=== PATIENT | female | born 1970 | race Caucasian/White ===

== ENCOUNTER 2024-11-10 01:23 | Emergency (ER) | payer OTHER ==
--- OUTSIDE RECORDS SUMMARY | 2024-11-10 01:27 | XMS REPORT | Continuity of Care Document ---
Author Name Unknown Address [address] [place] [address] [facility] [place] Address [address] [place] [address] Care Team Providers Care In Home Baby Sitter Name Role Phone Pcp, Patient Does Not Have A Primary Care Physic santosh Logan Lucas MD Attending Clinician [phone] RICHAR PEREIRA Attending Clinician Unavailable RICHAR PEREIRA Attending Clinician Unavailable LOGAN LUCAS Attending Clinician Unavailable Adrian Ruiz Attending Clinician [phone] ADRIAN ARZOLA Attending Clinician Unavailable Neurology Attending Clinician Unavailable Chau Garcia MD Attending Clinician + [phone] Cameron Burton MD Attending Clinician [phone] JUMANA TRAN Attending Clinician Unavailable JUMANA TRAN Attending Clinician Unavailable Jumana Tran MD Attending Clinician [phone] CASIMIRO VILLARREAL Attending Clinician Unavailable Casimiro Villarreal DO Attending Clinician [phone] ANUPAM BAIRD Attending Clinician Unavailable ADRIAN ARZOLA Admitting Clinician Unavailable Cameron Burton MD Admitting Clinician [phone] CAMERON BURTON Admitting Clinician Unavailable ROSALIO NOWAK Admitting Clinician Unavailable Payers Payer Name Policy Type Policy Number Effective Date Expirati on Date Source Problems Condition Name Condition Details Condition Category Status Onset Date Resolution Date Last Treatment Date Treating Clinician Comments Source Obesity (BMI 30-39.9) Obesity (BMI 30-39.9) Disease Active 9-21 00:00: 00 [facility] Trauma Trauma Disease Active 9-20 00:00: 00 [facility] Allergies, Adverse Reactions, Alerts Allergy Name Allergy Type Status Severity Reaction(s) Onset Date Inactive Date Treating Clinician Comments Source LAVENDER EXTRACT DRUG INGREDI Active High Anaphylaxis 2-06 00:00: 00 [facility] Lavender Extract Propensi ty to adverse reaction s Active Anaphylaxis 2-06 00:00: 00 [facility] ASPIRIN DRUG INGREDI Active Anaphylaxis 2019-0 2-16 00:00: 00 [facility] CODEINE DRUG INGREDI Active Rash 2019-0 2-16 00:00: 00 [facility] HYDROCOD ONE DRUG INGREDI Active N/V 2019-0 2-16 00:00: 00 [facility] PREDNISO NE DRUG INGREDI Active Swelling 2019-0 2-16 00:00: 00 [facility] HYDROCOD ONE-ACET AMINOPHE N DRUG Active Hallucinates 2019-0 2-16 00:00: 00 [facility] Aspirin Propensi ty to adverse reaction s Active Anaphylaxis 2019-0 2-16 00:00: 00 [facility] Codeine Propensi ty to adverse reaction s Active Rash 2019-0 2-16 00:00: 00 [facility] Hydrocod one Propensi ty to adverse reaction s Active Nausea and/or Vomiting 2019-0 2-16 00:00: 00 [facility] Predniso ne Propensi ty to adverse reaction s Active Swelling 2019-0 2-16 00:00: 00 [facility] Hydrocod one-Acet aminophe n Propensi ty to adverse reaction s Active Hallucinatio ns 2019-0 2-16 00:00: 00 [facility] Social History Social Habit Start Date Stop Date Quantity Comments Source History of tobacco use Cigarette Smoker [facility] of Social function 2024-04-24 00:00:00 2024-04-24 00:00:00 [facility] Tobacco use and exposure 2024-04-24 00:00:00 2024-04-24 00:00:00 Smokeless tobacco non-user [facility] Exposure to SARS-CoV-2 (event) 2022-08-13 00:00:00 2022-08-23 17:42:00 Not sure [facility] Sex assigned at 1970 00:00:00 1970 00:00:00 [facility] Smoking Status Start Date Stop Date Source Tobacco smoking consumption unknown [facility] Smokes tobacco daily 2024-04-24 00:00:00 [facility] Medications Ordered Medication Name Filled Medication Name Start Date Stop Date Current Medication? Ordering Clinician Indication Dosage Frequency Signature (SIG) Comments Components Source cyclobenzap rine 10 mg tablet 2023-07 00:00: 00 Yes 10mg Take 1 tablet by mouth in the morning and 1 tablet in the evening. [facility] polyethylen e glycol 3350 17 gram powder 04-10 00:00: 00 Yes [id number] 17g Take 1 Packet by mouth in the morning. [facility] pregabalin 100 mg capsule 04-10 00:00: 00 07-04 00:00 :00 No [id number] 100mg Take 1 capsule by mouth in the morning and 1 capsule at noon and 1 capsule in the evening. [facility] polyethylen e glycol 3350 powder 17 g 04-09 01:30: 00 Yes 17g 17 g, Oral, DAILY, First dose on 04/08/24 at 2030, Until Discontinu ed, Routine [facility] acetaminoph en 500 mg tablet 04-09 00:00: 00 Yes [id number] 1000mg Take 2 tablets by mouth in the morning and 2 tablets at noon and 2 tablets in the evening. [facility] pregabalin 100 mg capsule 04-09 00:00: 00 04-10 00:00 :00 No [id number] 100mg Take 1 capsule by mouth in the morning and 1 capsule at noon and 1 capsule in the evening. [facility] pregabalin (LYRICA) capsule 100 mg 04-08 16:45: 00 Yes 100mg 100 mg, Oral, TID, First dose on Wed04/08/24 at 1145, Until Discontinu ed, Routine [facility] fentanyl PF (SUBLIMAZE (PF)) injection 50 mcg 04-08 04:58: 00 04-07 05:03 :00 No 50ug 50 mcg, Intramuscu lar, ONCE, 1 dose, On Wed04/08/24 at 0000, NATALIE [facility] acetaminoph en (TYLENOL) tablet 1,000 mg 04-07 23:45: 00 Yes 1000mg 1,000 mg, Oral, TID, First dose on Wed04/07/24 at 1845, Until Discontinu ed, Routine [facility] ondansetron (ZOFRAN (PF)) injection 4 mg 04-07 23:31: 26 Yes 4mg [facility] traMADoL (ULTRAM) tablet 50 mg 04-07 23:31: 06 Yes 50mg 50 mg, Oral, Q6HPRN, Starting on Wed04/07/24 at 1831, Until Discontinu ed, Routine, Pain (scale 4-6) [facility] gadoteridol (PROHANCE-2 0 mL) injection 18.14 mL 04-07 19:30: 00 04-07 19:30 :00 No [id number] .2mL/kg 18.14 mL (0.2 mL/kg ?90.7 kg), Intravenou s, ONCE, 1 dose, On Wed04/07/24 at 1430, Routine [facility] ondansetron (ZOFRAN (PF)) injection 4 mg 04-07 16:00: 00 04-07 15:58 :00 No 4mg 4 mg, Slow IV Push, ONCE, On Wed04/07/24 at 1100, For 1 dose, Doses of ondansetro n 16 mg and above need to be administer ed via IV piggyback. For Dose >=24mg ECG monitoring is advisable. 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 [facility] fluconazole 150 mg tablet 2-05 00:00: 00 08-24 05:59 :00 No [id number] 150mg Take 1 tablet by mouth once now for 1 dose. [facility] ibuprofen 600 mg tablet -25 00:00: 00 Yes [id number] 600mg Take 1 tablet by mouth every 6 (six) hours as needed for Pain (scale 4-6). [facility] ondansetron (ZOFRAN ODT) 4 mg disintegrat ing tablet 11-10 00:00: 00 Yes [id number] 4mg Take 1 tablet by mouth every 8 (eight) hours as needed for Nausea and Vomiting (N/V). [facility] Vital Signs Vital Name Observation Time Observation Value Comments S ource Systolic blood pressure 2024-08-24 16:02:00 133 mm[Hg] [facility] Diastolic blood pressure 2024-08-24 16:02:00 83 mm[Hg] [facility] Heart rate 2024-08-24 16:02:00 83 /min [facility] Body height 2024-08-24 16:02:00 160 cm [facility] Body weight 2024-08-24 16:02:00 107.321 kg [facility] BMI 2024-08-24 16:02:00 41.91 kg/m2 [facility] Oxygen saturation in Arterial blood by Pulse oximetry 2024-08-24 16:02:00 98 /min [facility] Respiratory rate 2024-07-04 17:18:00 16 /min [facility] Body height 2024-07-04 17:18:00 160 cm [facility] Body weight 2024-07-04 17:18:00 99.791 kg [facility] BMI 2024-07-04 17:18:00 38.97 kg/m2 [facility] Respiratory rate 2024-04-24 15:58:00 18 /min [facility] Body height 2024-04-24 15:58:00 160 cm [facility] Body weight 2024-04-24 15:58:00 90.719 kg [facility] BMI 2024-04-24 15:58:00 35.43 kg/m2 [facility] Systolic blood pressure 2024-04-09 16:25:00 130 mm[Hg] [facility] Diastolic blood pressure 2024-04-09 16:25:00 68 mm[Hg] [facility] Heart rate 2024-04-09 16:25:00 83 /min Un[facility] Body temperature 2024-04-09 16:25:00 36.56 Hailee [facility] Respiratory rate 2024-04-09 16:25:00 18 /min [facility] Oxygen saturation in Arterial blood by Pulse oximetry 2024-04-09 16:25:00 96 /min [facility] Body height 2024-04-07 11:08:41 160 cm [facility] Body weight 2024-04-07 11:08:41 90.719 kg [facility] BMI 2024-04-07 11:08:41 35.43 kg/m2 [facility] Systolic blood pressure 2024-04-07 09:48:00 148 mm[Hg] [facility] Diastolic blood pressure 2024-04-07 09:48:00 98 mm[Hg] [facility] Heart rate 2024-04-07 09:48:00 73 /min [facility] Body temperature 2024-04-07 09:48:00 36.61 Hailee [facility] Respiratory rate 2024-04-07 09:48:00 18 /min [facility] Oxygen saturation in Arterial blood by Pulse oximetry 2024-04-07 09:48:00 95 /min [facility] Body height 2024-04-07 04:16:00 160 cm [facility] Body weight 2024-04-07 04:16:00 90.719 kg [facility] BMI 2024-04-07 04:16:00 35.43 kg/m2 [facility] Systolic blood pressure 2022-08-23 23:43:00 134 mm[Hg] [facility] Diastolic blood pressure 2022-08-23 23:43:00 92 mm[Hg] [facility] Heart rate 2022-08-23 23:43:00 71 /min Un[facility] Body temperature 2022-08-23 23:43:00 36.61 Hailee [facility] Respiratory rate 2022-08-23 23:43:00 16 /min [facility] Body height 2022-08-23 23:43:00 160 cm [facility] Body weight 2022-08-23 23:43:00 102.059 kg [facility] BMI 2022-08-23 23:43:00 39.86 kg/m2 [facility] Oxygen saturation in Arterial blood by Pulse oximetry 2022-08-23 23:43:00 96 /min [facility] Systolic blood pressure 2024-08-24 16:02:00 133 mm[Hg] [facility] Diastolic blood pressure 2024-08-24 16:02:00 83 mm[Hg] [facility] Heart rate 2024-08-24 16:02:00 83 /min [facility] Body height 2024-08-24 16:02:00 160 cm [facility] Body weight 2024-08-24 16:02:00 107.321 kg [facility] BMI 2024-08-24 16:02:00 41.91 kg/m2 [facility] Oxygen saturation in Arterial blood by Pulse oximetry 2024-08-24 16:02:00 98 /min [facility] Respiratory rate 2024-07-04 17:18:00 16 /min [facility] Body temperature 2024-04-09 16:25:00 36.56 Hailee [facility] Procedures Procedure Date / Time Performed Performing Clinician Source EMG/NCV 2024-06-27 20:49:48 [facility] EMG/NCV 2024-06-27 20:49:48 [facility] MR CERVICAL SPINE W WO CONTRAST 2024-04-07 19:20:00 Brenna Elder [facility] URINALYSIS 2024-04-07 16:50:00 [facility] LIPASE 2024-04-07 11:14:00 PersonMaria GJose [facility] COMP. METABOLIC PANEL ([id number]) 2024-04-07 11:14:00 Jose Eng [facility] ETHANOL 2024-04-07 11:14:00 [facility] 2024-04-07 11:14:00 Person, Jose [facility] PR[facility] / INR 2024-04-07 11:14:00 Person, Garrett olivo [facility] ACTIVATED PARTIAL THRMPLAS AYUSH 2024-04-07 11:14:00 Person, Jose [facility] HB ABO GROUPING 2024-04-07 11:14:00 Person, Jose Echevarria [facility] POCT GLUCOSE (AUTOMATED) 2022-08-24 00:09:00 Casimiro Villarreal [facility] URINALYSIS 2022-08-23 23:55:00 Casimiro Villarreal [facility] CONSENT/REFUSAL FOR DIAGNOSIS AND TREATMENT 2022-08-23 23:34:45 Doctor Unassigned, Ashkum [facility] CONSENT/REFUSAL FOR DIAGNOSIS AND TREATMENT 2022-08-23 23:32:13 Doctor Unassigned, Ashkum [facility] Encounters Start Date/Time End Date/Time Encounter Type Admission Type Attending Clinicians Care Facility Care Department Encounter ID Source 2024-09-19 00:00:00 2024-09-19 10:22:35 Telephone Logan Lucas [facility] 1.2.840.114 350.1.13.10 4.2.7.2.686 [id number] [facility] 2024-08-24 10:00:00 2024-08-24 11:00:00 Office Visit Logan Lucas 1.2.840.1 [id number] 3.104.2.7 .3.483024 .[id number] [facility] 2024-08-24 10:00:00 2024-08-24 10:00:00 Outpatient LOGAN PALACIOS [facility] [id number] [facility] 2024-08-15 10:30:00 2024-08-15 10:30:00 Outpatient RICHAR MULLEN FNU [facility] [id number] [facility] 2024-06-21 00:00:00 2024-07-06 09:57:00 Telephone Adrian Arzola 1.2.840.1 [id number] 3.104.2.7 .3.047023 .8 [id number] [facility] 2024-07-04 11:30:00 2024-07-04 12:06:29 Outpatient R ADRIAN ARZOLA [facility] [id number] [facility] 2024-07-04 11:30:00 2024-07-04 12:06:29 Office Visit Adrian Arzola 1.2.840.1 12545.1.1 3.104.2.7 .3.422067 .8 [id number] [facility] 2024-07-04 00:00:00 2024-07-04 00:00:00 Travel 1.2.840.1 [id number] 3.104.2.7 .3.064926 .8 1.2.840.114 350.1.13.10 4.2.7.3.698 [id number] [facility] 2024-06-27 11:47:53 2024-06-27 23:59:00 Outpatient R LOGAN LUCAS [facility] [id number] [facility] 2024-06-27 11:47:53 2024-06-27 23:59:00 Hospital Encounter Logan Lucas Julia 1.2.840.1 [id number] 3.104.2.7 .3.126501 .8 [id number] [facility] 2024-06-27 00:00:00 2024-06-27 00:00:00 Travel 1.2.840.1 [id number] 3.104.2.7 .3.925667 .8 1.2.840.114 350.1.13.10 4.2.7.3.698 [id number] [facility] 2024-05-11 00:00:00 2024-05-11 14:57:41 Letter (Out) Neurology Neurology [facility] 1.2.840.114 350.1.13.10 4.2.7.2.686 [id number] [facility] 2024-05-03 00:00:00 2024-05-04 09:15:03 Telephone Dariusz Adrian [facility] 1.2.840.114 350.1.13.10 4.2.7.2.686 [id number] [facility] 2024-04-24 11:30:00 2024-04-24 12:11:38 Outpatient R DARIUSZ [facility] [id number] [facility] 2024-04-24 11:30:00 2024-04-24 12:11:38 Office Visit Dariusz [facility] MED[facility] OFF[facility] 1.2.840.114 350.1.13.10 4.2.7.2.686 [id number] [facility] 2024-04-10 00:00:00 2024-04-10 17:21:29 Telephone Chau Garcia [facility] 1.2.840.114 350.1.13.10 4.2.7.2.686 [id number] [facility] 2024-04-07 06:08:00 2024-04-09 16:00:00 Emergency Cameron Burton [facility] 1.2.840.114 350.1.13.10 4.2.7.2.686 [id number] [facility] 2024-04-06 23:08:00 2024-04-07 05:17:00 Emergency X JUMANA TRAN WAKILI [facility] [id number] [facility] 2024-04-06 23:08:00 2024-04-07 05:17:00 Emergency X JUMANA TRAN WAKILI [facility] E[facility] [id number] [facility] 2024-04-06 23:08:00 2024-04-07 05:17:00 Emergency Jumana Tran [facility] 1.2.840.114 350.1.13.10 4.2.7.2.686 [id number] [facility] 2022-08-23 17:44:00 2022-08-23 18:40:00 Emergency X CASIMIRO VILLARREAL [facility] E[facility] [id number] [facility] 2022-08-23 17:44:00 2022-08-23 18:40:00 Emergency Casimiro Villarreal [facility] 1.2.840.114 350.1.13.10 4.2.7.2.686 [id number] [facility] 2020-11-09 23:39:00 2020-11-09 23:39:00 Emergency X [facility] [id number] [facility] 2019-09-03 16:42:01 2019-09-03 18:25:00 Emergency X ANUPAM BAIRD [facility] ERT [id number] [facility] Results Test Description Test Time Test Comments Results Resul t Comments Source MR CERVICAL SPINE W WO CONTRAST 2024-03-20 0 21:49:32 EXAM: MR CERVICAL SPINE W WO CONTRAST HISTORY: Fall, left shoulder pain COMPARISON: None. TECHNIQUE: Multiplanar multisequence images of cervical spine ?withattention to the left brachial plexus with and without contrast. ? FINDINGS: LEFT BRACHIAL PLEXUS: No thickening or enhancement is seen involving the left brachial plexusroots, trunks, divisions, or cords. No mass or mass effect is seen. No aneurysmal dilatation or stenosis is seen involving the subclavianartery. The scalene muscles and visualized rotator cuff muscles demonstrate nofatty infiltration or atrophy. The ?left lung apex is normal. CERVICAL SPINE:Normal cervical lordosis is preserved. The vertebral bodies are normal inheight and in normal alignment. No disc dessication is seen. The background marrow signal is unremarkable. The cervical cord is normal in caliber and signal. C2-3: No significant spinal canal stenosis or neural foraminal narrowing ispresent. C3-4: No significant spinal canal stenosis or neural foraminal narrowing ispresent. ? C4-5: Disc osteophyte complex is noted with mild spinal canal narrowing.There is no significant neural foramen narrowing. ? C5-6: Disc osteophyte complex is noted with mild to moderate spinal canalnarrowing. There is bilateral mild neuroforamen narrowing. ? ? C6-7: Disc osteophyte complex is noted with left paracentral disc bulgecausing mild ?spinal canal narrowing (series 6, image 16). No significantneural foramen narrowing. C7-T1: No significant spinal canal stenosis or neural foraminal narrowingis present. [facility] Ethanol - For all patients >16 years old 2024-03-20 0 11:43:05 ALCOHOL<10mg/dL2023 6:43 AM CDTUTMB LABORATORY SERVICESToxic Greater than or equal to 80 mg/dL. NOTE: Whole blood values are approximately 10% to 15% lower than serum and plasma. [facility] 11:37:11* Test Item Value Reference Range Interpretation Comme [facility] LIPASE (test code = 2354290743) 102 U/L 0-220 Lab Interpretation (test cod e = 31913-7) Normal [facility] Time / [id number] 11:33:52* Test Item Value Reference Range Interpretation Comme [facility] PROTIME PATIENT (test code = 5964-2) 11.6 10.1-12.6 INR (test code = 6301-6) 1.0 Normal INR <1.1; Warfarin Therapeutic range 2.0 to 3.0 or 2.5 to 3.5, depending upon the indications. Lab Interpretation (test code = 93080-7) Normal [facility]TT2024-09-20 11:33:52* Test Item Value Reference Range Interpretation Comme [facility] APTT Patient (test code = 3173-2) 29 26-36 Lab Interpretation (test cod e = 28334-6) Normal [facility]CBC Without [id number] 11:24:29* Test Item Value Reference Range Interpretation Comme nts WBC (test code = 6690-2) 12.40 4.30-11.10 H RBC (test code = 789-8) 4.29 3.93-5.25 HGB (test code = 718-7) 11.7 g/dL 11.6-15.0 HCT (test code = 4544-3) 35.9 % 35.7-45.2 MCH (test code = 785-6) 27.3 pg 25.9-32.8 MCV (test code = 787-2) 83.7 fL 80.6-95.5 MCHC (test code = 786-4) 32.6 g/dL 31.6-35.1 PLT (test code = 777-3) 295 166-358 MPV (test code = 04204-9) 11.4 fL 9.5-12.9 RDW-CV (test code = 788-0) 16.1 % 12.0-15.5 H RDW-SD (test code = 16790-2) 49.1 fL 39.0-49.9 NRBC x10^3 (test code = 9129935117) See_Comment [Automated True Office ge] The system which generated this result transmitted reference range: 10*3/?L. The reference range was not used to interpret this result as normal/abnormal. NRBC/100 WBC (test code = 7101690389) 0.0 0.0-10.0 IPF % (test code = 9772085445) Lab Interpretation (test code = 10851-9) Abnormal [facility] - The Type and Screen expires at midnight on the 3rd day after it was drawn. A current Type and Screen is required when RBCs are requested. For all other blood products, a Type and Scr een performed during the current hospitalizati...2024-04-07 11:19:00* Test Item Value Reference Range Interpretation Comme nts ABO & RH (test code = 20) A POSITIVE IAT (test code = 1185) Negative [facility])2022-08-24 00:12:20* Test Item Value Reference Range Interpretation Comme nts POCT GLU (test code = 1985961002) 85 mg/dL 70-110 Lab Interpretation (test cod e = 56566-3) Normal [facility] Consult Notes Date/Time Note Provider Source 2024-04-08 12:09:00 Associated Order(s): CONSULT ADULT OCCUPATIONAL THERAPY OT GENERAL EVALUATION Consult received via [email or web address], EMR reviewed and evaluation completed 04/08/24. Patient referred to occupational therapy for evaluation and treatment secondary to trauma accident at work where boxes fell on neck. Patient agreeable to participate in occupational therapy. Patient was seen in conjunction with Arie Stringer PT due to concerns for poor endurance and decreased tolerance for two separate therapy sessions. Billing for OT portion only. Discharge Recommendations: Patient would benefit from additional occupational therapy post discharge from hospital to address L UE deficits. Therapy Needs and Potential: - Patient would benefit from continued skilled occupational therapy services to address: Decline in basic activities of daily living, Decline in instrumental activities of daily living, Decreased strength, Decreased range of motion, Decreased endurance, and impaired self care mobility - Patient demonstrates good potential to improve and meet therapy goals with further skilled occupational therapy services. - Patient appears motivated to improve their BADLS AND IADLs and return to their previous level of function. - Patient demonstrates ability to tolerate at least 30-60 minutes of active participation in occupational therapy. - Patient able to follow commands: 1-step Yes, Multi-step Yes, Inconsistencies No Challenges to Home Transition: - Requires physical assistance for BADLS - Requires physical assistance for IADLS - Requires supervision or verbal cues for BADLS - Requires supervision or verbal cues for IADLS - Limited caregiver availability - Increased risk of falls - Environmental barriers - combo bath tub Equipment Recommendations:Grab bars and Tub Transfer Bench vs Shower Chair PLAN OF CARE: At least 2x/week Precautions: Weight bearing status: NA General: PPE Utilized: Gloves and Fall Bracing: Sling - For comfort while ambulating Subjective: "I need this hand to work." Current Occupational Performance and/or Treatment: AM-PAC 6 Clicks (Raw Score 0=Dependent, 24=Independent; Low function Raw Score 0= Dependent, 32=Independent): Raw Score - Daily Activity: 18 T-Scale Score - Daily Activity: 38.66 Feeding: Supervision, Patient with breakfast at bedside and has not eaten thus far. Patient was able to grasp cup w/ straw and medicine cup with R UE while sitting EOB w/ setup provided. Grooming: Supervision, Patient demonstrates ability to bring RUE to face to complete grooming tasks while seated. Patient reports independence brushing hair. LB Dressing: Supervision, for dynamic sitting balance. Toilet Transfer: Supervision, w/ grab bars Toileting Hygiene: Total Assistance, purewick and brief; patient report some of her medication result in her experiencing urinary incontinence Functional Mobility: supine -> sitting EOB -> scooting EOB w/ supervision. Sitting EOB -> standing w/ supervision. Patient ambulated around room without device for completion of ADLs and then returned to bedside. Standing -> sitting EOB w/ supervision. Patient/caregiver educated on: AAROM (handout provided for ROM of LUE), ADL training, AROM (handout provided for ROM of LUE), Desensitization, PROM (handout provided for ROM of LUE), Relaxation/breathing techniques, Role of OT, Safety awareness, Sensory Re-education, and Sling Management Patient left seated edge of bed with call shoemaker in reach. Visitor present. Please, see full evaluation below for more detail. OT EVALUATION: 54 year old female Admit date: 04/07/2024 Date of onset: 04/07/2024 Admit Diagnosis: Trauma [T14.90XA] OT Diagnosis: Impaired BADL independence, Impaired IADL independence, Weakness, Decreased endurance, Impaired self-care mobility, Decreased UE Function Non-Dominant, and Limited joint ROM PMH: Past Medical History: Diagnosis Date Anxiety and depression PTSD (post-traumatic stress disorder) PSH: No past surgical history on file. PAIN: Pain Location: left UE Pain rating before treatment: "10/10", After treatment: "15/10" Pain Management: Reports taking pain meds, Decreased movement aides in some pain reduction, and Repositioning Provided OCCUPATIONAL ROLES/HOME ENVIRONMENT: Home environment: The patient lives in a first floor apartment alone. 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 Function prior to admission: Household ambulation, Community ambulation, Independent with BADLs, and Independent with IADLs Suspected ischemic or hemorraghic stroke patient: No Equipment prior to admission: None PERFORMANCE SKILLS/FACTORS: UE Muscle Tone: bilateral WNL UE ROM: RUE WFL; L shoulder flexion demonstrated approximately 10 degrees of flexion and abduction actively. Patient completed slight PROM w/ OTR of L UE but limited secondary to pain. L elbow extension WFL w/ AAROM by OTR. L elbow flexion limited. L wrist w/ no AROM noted with minimal tolerance for PROM. L hand w/ no AROM noted with full PROM. UE Strength: RUE WFL; L shoulder (2-), L bicep/tricep (2-), L replenishment buyer (1/5) Hand dominance: right Dexterity/Coordination: left Impaired and right Intact Endurance - Sitting: Good Standing: Fair+ Sitting Balance - Static: Good Dynamic: Fair+ Standing: Balance - Static Fair+ Dynamic: Fair Dizziness: Yes Skin Integrity: No breakdown noted and defer full skin assessment to nursing Sensation: Patient RUE intact w/ no numbness/tingling. Patient reports hypersensitivity from L mid forearm proximally to shoulder joint. Patient reports dullness with impaired sensation to light touch from L mid forearm distally. Oral Motor: Poor dentition Communication: Able to verbalize needs Yes Other: N/A Vision: WFL Yes Other: reading glasses Hearing: good; no issues reported COGNITION: Orientation: person, place, date/time, and situation Follows Commands: 1-step Yes Multi-step Yes Inconsistencies No Safety Awareness/Judgment: Good PROBLEM LIST: Decreased independence with B/IADL, Decreased functional ROM, Decreased strength/endurance for functional activity, and impaired self care mobility REHAB POTENTIAL/PROGNOSIS: good PATIENT/FAMILY GOALS: "I want my hand to work." TREATMENT/INTERVENTION PLAN: Patient/Caregiver Education, Equipment recommendations, Daily living activities, Therapeutic exercises, and Sensory integration GOAL(S): By discharge, patient will increase independence in daily living skills as follows: 1 Patient will perform 1 grooming task while standing at sink with supervision. 2 Patient will perform simulated tub/shower transfer with supervision. 3 Patient will gather UB/LB clothing items and will then don appropriately with supervision. 4 Patient will increase endurance for functional activity as evidenced by ability to sustain 30 minutes of active participation. 5 Patient/caregiver will verbalize/demonstrate understanding/proficiency in the following home programs: ROM, 6 Sensory Re-Education/Desensitization, 7 Adaptive Equipment PATIENT-FAMILY TEACHING Patient provided with preferred teaching of verbal information, written information, and demonstration on AAROM (handout provided for ROM of LUE), ADL training, AROM (handout provided for ROM of LUE), Desensitization, PROM (handout provided for ROM of LUE), Relaxation/breathing techniques, Role of OT, Safety awareness, Sensory Re-education, and Sling Management. Shows readiness to learn. Verbal instruction, Written material, and Demonstration teaching provided. Individual is able to read and verbalizes understanding of teaching provided. Najma Curry OTR, OTD Pager #: [phone] Total Timed Treatment Codes: 10 Min Total Treatment Time: 33 Min Patient Complexity Level Moderate - An occupational therapy evaluation of moderate complexity was completed using the above tests and measures. The following information was obtained: An occupational profile and medical and therapy history, including an expanded review of medical and/or therapy records and additional review of physical, cognitive, or psychosocial history related to current functional performance, Various standardized and non-standardized assessments were used to identify at least 3-5 performance deficits related to physical, cognitive, or psychosocial skills that result in activity limitations and/or participation restrictions, and Clinical decision making of moderate analytic complexity, which includes an analysis of the occupational profile, analysis of data from detailed assessment(s), and consideration of several treatment options. Patient may present with comorbidities that affect occupational performance. Minimal to moderate modification of tasks or assistance (e.g., physical or verbal) with assessment(s) is necessary to enable patient to complete evaluation component. Najma Curry OT [facility] 2024-04-08 12:05:00 Associated Order(s): CONSULT ADULT PHYSICAL THERAPY Patient agreeable to working with physical therapy. Patient met semi reclined in bed. Patient's friend present in room. Recommend nursing staff utilize Large Base Quad Cane to safely assist patient with mobility out of the bed or chair. Pt seen in conjunction with OT (Najma Curry OT) secondary to anticipated limited activity tolerance and safety. Only billing for PT services. PHYSICAL THERAPY EVALUATION Consult received, chart reviewed and evaluation complete this date. Patient is referred to PT for evaluation and treatment. Patient is a 54 year old female who presents to hospital for Trauma [T14.90XA]. Discharge Recommendations: Therapy Needs and Potential: Patient would benefit from continued physical therapy services to address: decline in bed mobility decline in transfers decline in gait and/or balance decreased strength decreased endurance Patient demonstrates good potential to improve and meet therapy goals with further physical therapy services. Patient appears motivated to improve their functional mobility and return to their previous level of function. Challenges to Home Transition: increased risk of falls decreased caregiver availability Equipment recommendations: large base quad cane The patient would benefit from additional therapy post-discharge from hospital via outpatient to address L UE deficits Current Functional Status and/or Treatment: AM-PAC 6 Clicks (Raw Score 0=Dependent, 24=Independent; Low function Raw Score 0= Dependent, 32=Independent): Raw Score - Basic Mobility : 17 T-Scale Score - Basic Mobility : 39.67 Bed Mobility: Reclined to sitting: Supervision Sit to supine: Supervision Sitting balance Good Scooting to edge of bed: Supervision Repositioned patient to head of bed: Supervision Assessed that patient is able to perform bed mobility tasks without physical assistance however requires increased time as well as supervision for safety due to patient needing cueing for management of R UE. Dizziness No Transfers: Sit to stand: Supervision using no device. (X3 Trials) Stand to sit: Supervision using no device. (X3 Trials) Static/dynamic standing balance: Fair Verbal cueing provided for correct hand placement and correct use of AD Patient with verbal cues for hand placement and technique when performing stand to sit transfer. Patient requires supervision for safety secondary to needing cueing for safest techniques as well as demonstrating moderate postural sway. Dizziness No Ambulation: Assisted patient with ambulation as follows: 20 feet with no AD, 150 feet, with Large base quad cane, 170 total feet using large base quad Cane and Minimal Assistance. Patient presenting with Step-to gait pattern. Instructed patient in directional changes and head movements in all planes during gait trial resulting in mild-moderate instability and 1 LOB. Patient when ambulating without AD demonstrates moderate postural sway, resulting in patient utilizing furniture for stability. Patient educated on utilizing large base quad cane for stability/support. Patient agreeable. Patient provided with extensive education and demonstration of proper use of AD and proper sequencing. Patient demonstrates improved step lengths, arpit, and stability when utilizing AD. Patient required 3 standing rest break secondary to increased pain in L UE/LE with dependent positioning. Dizziness No Therapeutic exercise: patient educated in Fall prevention, Joint protection, Relaxation/breathing techniques, and Safety awareness. and patient/caregiver verbalizes understanding of instructions. Patient was educated on the importance of calling the staff for assistance to ensure safety and to prevent injury Patient educated on fall prevention strategies to reduce risks of falls. Patient educated on safe progression of activities in order to safely return to prior level of function. Patient educated on breathing techniques for improved activity tolerance and for pain management. Patient educated on energy conservation techniques in order to decrease level of exertion and decrease risks of falls Functional Outcome Measures: (Values within the past 12 hours) Tinetti Gait Score- # / 12 Initiation of gait: Hesitancy or multiple attempts to start Step length: Only on foot passes the other Foot clearance: Both feet completely clear floor Step Symmetry: Step lengths not equal Step continuity: Stopping/dis-continuous steps Path: Mild/moderate deviation or uses AD Trunk: Marked sway or uses AD Walking: Heels almost touching Tinetti Gait Score: 5 Tinetti Gait Score Interpretation: < 7 - Increased risk for falls After session, patient semi reclined in bed. Call button provided. All needs met, and nursing notified and aware. PLAN OF CARE: While in the hospital, PT will follow patient at least 3 times per week,once or twice a day, per patient's tolerance and needs. See below for complete details. Admit Date: 04/07/2024 Hospital Diagnosis:Trauma [T14.90XA] PT Diagnosis: Difficulty walking, Weakness, Malaise/fatigue, Pain, and Abnormality of gait and balance Weight Bearing Precaution: NA General Precautions: PPE used:Gloves, General, Fall, Lines/Tubes,IV R UE, oxygen: Room air Bracing/Cast present or required:Sling on L UE for comfort PMH: Past Medical History: Diagnosis Date Anxiety and depression PTSD (post-traumatic stress disorder) PSH: No past surgical history on file. Prior Living Situation: lives alone and in a 1st floor apartment, no steps to enter DME: No device Prior level of Mobility: community ambulation, house hold ambulation, ambulates with no device. Suspected ischemic or hemorraghic stroke:No Subjective: It feels like my arm is slowly coming back Patient/Family Goals: To recover Patient/Family verbalizes understanding of condition: Yes PAIN: -Pain Description: numbness, radiating, and tingling -Pain Location: left UE -Pain rating before treatment: 10, After treatment: 10 -Pain Management: Nursing Notified, Decreased movement aides in some pain reduction, and Repositioning Provided COMMUNICATION Primary Language: Slovenian Able to Verbalize needs: Yes Vision:good; no issues reported and reading glasses Hearing:good; no issues reported ORIENTATION/COGNITION: Oriented to: person, place, date/time, and situation Awake: Yes Alert: Yes Dizzy: No Follows Commands: Yes 1-Step Yes Multi-Step Yes Inconsistent: No NEUROLOGICAL Light Touch: within functional limits bilateral LE, Heel to gonzalez: Intact B LE Tone: Normal B LE BALANCE: Sitting: Static: Good Dynamic: Good Standing: Static: Fair with AD Dynamic: Fair+ with AD RANGE OF MOTION: within functional limits bilateral LE, STRENGTH: Grossly 5/5 (Normal), R LE knee extensors, knee flexors, ankle dorsiflexors, and extensor hallucis longus. Grossly 4/5 L LE knee extensors, knee flexors, ankle dorsiflexors, and extensor hallucis longus. ENDURANCE: Fair, Room air SKIN INTEGRITY: intact, PROBLEM LIST: Decline in bed mobility, Decline in gait, Decline in transfers, Decreased strength, Decreased endurance, Decreased balance, Safety awareness deficits, and Pain ASSESSMENT: Patient is a 54 year old female seen secondary to the above listed diagnosis. Patient would benefit from continued PT to address the above listed deficits to maximize independence and safety with functional mobility. Rehabilitation Potential: good Goals: The following goals are to maximize independence and safety with functional mobility to eventually return to prior living situation and prior functional status. Upon discharge, patient and/or family will demonstrate the followin. Supine-sit: Independent Sit to supine: Independent Sitting balance Excellent 2. Sit to stand: Independent using LRAD Stand to sit: Independent using LRAD 3. Independent with ambulation, Feet: 300 using least assistive device. Treatment Plan: Gait training, Therapeutic exercise, Transfer training, Balance training, Bed mobility training, Equipment needs assessment, Safety education, patient/caregiver education, Pain management, Neuromuscular Re-Education, and Functional Motor Training PATIENT EDUCATION: Patient provided with preferred teaching of verbal information on role of PT, plan of care, home safety, and fall prevention. Shows readiness to learn. Verbal instruction teaching provided. Individual is able to read and verbalizes understanding of teaching provided. Total Time Tx Codes in Minutes: 23 min Total Treatment Time in Minutes: 53 min Arie Stringer PT, DPT [facility] Rehabilitation Services A physical therapy evaluation of high complexity was completed based on meeting at the criteria below: A history of present problem with at least 3 or more personal factors (includes environmental factors) and/or comorbidities that impact the plan of care An examination of body systems using standardized tests and measures addressing a total of at least 4 or more elements from any of the following: body structures and functions, activity limitations, and/or participation limitations A clinical presentation with unstable and unpredictable characteristics Arie Stringer PT [facility] 2024-04-07 10:14:52 Associated Order(s): CONSULT NEUROSURGERY NEUROSURGERY CONSULTATION HISTORY AND PHYSICAL Attending Neurosurgeon: José Miguel Reason for Consultation: arm weakness s/p trauma HPI: Genaro Guerrero is a 54 year old female who presents to the ED after boxes had fallen on her at 0730 this AM. Patient reports she was at work when several boxes from a high shelf fell and impacted her on the left neck and left shoulder. She reports an immediate feeling of persistent pain down her left arm and persistent numbness of her left forearm. In the last hour she has noticed left leg weakness. ROS (BOLDED IF POSITIVE - otherwise negative) Constitutional: Nausea, Vomiting, Fevers, Chills Eyes: Diplopia, Amaurosis Fugax, Blurred Vision Ears, nose, mouth, and throat: Negative Endocrine: Negative Hematologic: Negative Card: Chest pain, Palpitations Pulm: Cough, Shortness of breath GI: Diarrhea, Constipation, Incontinence : Incontinence, Retention, Hematuria, Dysuria Integ: Masses, Rashes, Lesions Msk: Weakness, Pain Neuro: Headache, Vision changes, Dizziness, Weakness, Discoordination, Changes in sensation, Speech difficulty, Memory disturbances Medications No current facility-administered medications on file prior to encounter. Current Outpatient Medications on File Prior to Encounter Medication Sig Dispense Refill ibuprofen 600 mg tablet Take 1 tablet by mouth every 6 (six) hours as needed for Pain (scale 4-6). 30 tablet 0 ondansetron (ZOFRAN ODT) 4 mg disintegrating tablet Take 1 tablet by mouth every 8 (eight) hours as needed for Nausea and Vomiting (N/V). 10 tablet 0 Past Medical History: Past Medical History: Diagnosis Date Anxiety and depression PTSD (post-traumatic stress disorder) Past Surgical History: No past surgical history on file. Social History: Family History: No family history on file. PE Vitals: Vitals: 04/07/24 0745 04/07/24 0800 04/07/24 0815 04/07/24 0915 BP: 136/72 125/82 123/76 122/74 Pulse: 84 77 83 73 Resp: 18 18 18 20 Temp: 37 ?C (98.6 ?F) TempSrc: SpO2: 96% 94% 95% 95% Weight: Height: Awake, alert, oriented x4 PERRL bilaterally at 3 mm EOMI bilaterally Face symmetric Tongue midline UPPER EXTREMITY STRENGTH EXAM: R 5/5 5/5 5/5 5/5 5/5 D(C5) B(C6) T(C7) Supervisor [employer](C8) I (T1) L 0/5 0/5 0/5 0/5 0/5 LOWER EXTREMITY STRENGTH EXAM: R 5/5 5/5 5/5 5/5 5/5 IP(L2) Q(L3) TA(L4) EHL(L5) G(S1) L 0/5 0/5 0/5 0/5 0/5 Sensation intact to LT throughout Exam deep tendon: patellar 2/4 in RLE, 0/4 in LLE No bruising to the left neck or shoulder. Labs: Recent Labs 04/07/24 0614 WBC 12.40* HGB 11.7 HCT 35.9 PLT 295 ] Recent Labs 04/07/24 0614 NA 136 K 4.6 CL 108 TCO2 19* BUN 16 CREAT 0.62 GLU 109 CA 9.7 ] No results for input(s): "ACPH", "ACPCO2", "ACPO2", "ACHCO3", "ACNA", "ACK", "ACCAIONZ", "ACBE" in the last 72 hours. Recent Labs 04/07/24 0614 PTPAT 11.6 PTINR 1.0 APTTPAT 29 No results for input(s): "UPROTEIN", "UGLUCOSE", "UKETONES", "UBILI", "UBLOOD", "UUROBILIN", "ULEUKEST", "UNITRITE", "USPGRAV" in the last 72 hours. @1LFT@ No results for input(s): "PHENYTOIN", "PHENYFREE" in the last 72 hours. Imaging: CT CERVICAL SPINE WO CONTRAST Result Date: 04/07/2024 No acute osseous abnormality. Preliminary Report Dictated by Resident: May Vásquez MD., have reviewed this study and agree with the above report. XR SHOULDER 2+ VW LEFT Result Date: 04/07/2024 No acute osseous abnormality.. Preliminary Report Dictated by Resident: Zoraida Vásquez MD., have reviewed this study and agree with the above report. XR HUMERUS 2 VW LEFT Result Date: 04/07/2024 No acute osseous abnormality.. Preliminary Report Dictated by Resident: Zoraida Vásquez MD., have reviewed this study and agree with the above report. XR FOREARM 2 VW LEFT Result Date: 04/07/2024 No acute osseous abnormality.. Preliminary Report Dictated by Resident: Zoraida Vásquez MD., have reviewed this study and agree with the above report. Assessment:Genaro Guerrero is a 54 year old female who presents after boxes fell from a high shelf that impacted her on the left neck and left shoulder region at 0730 this AM while at work. Complains of numbness of the left forearm, pain of the left arm, and weakness of the left lower extremity. CT C spine reveals no acute osseous abnormality. The patient's pattern of symptoms do not correlate with a lesion concerning for acute neurosurgical intervention. Recommendations: No acute neurosurgical intervention is indicated at this time. Will review previously ordered MRI C-Spine once obtained. Raad Aldana MD Neurosurgery Service For inquiries please page [phone] Associated attestation - Chau Garcia MD - 04/07/2024 12:34 PM CDT I have participated in the care of this patient and agree with the resident's note with the following changes: none Chau Valdez MD, PhD Gardening Manager, Neurosurgery Department of Neurosurgery [facility] [email or web address] [facility] Notes Date/Time Note Provider Source 2024-09-19 10:20:15 Attempt made to reach out to pt to get verbal permission to send last office notes and information about up coming appointments.Message left with direct number to clinic given at this time. Will send notes when call back from pt is received. LEY Mares RN [facility] 2024-09-19 09:45:34 Genaro Guerrero is a 54 year old female Georgie calling from [facility] requesting the office visit nots from Aug and also wants to know when the pt next apt is Please call Georgie @ [facility] [phone] [phone] LEY Wetzel V [facility] 2024-08-24 10:00:00 Addended by: LOGAN LUCAS MD on: 08/24/2024 08:43 PM Modules accepted: Level of Service [facility] 2024-06-22 08:37:07 Routing to provider [facility] 2024-06-21 15:16:36 Genaro Guerrero is a 54 year old female [employer] would like to set up a Peer to Peer Please call [phone] Option 1 Reference # [id number] Dr. Arvizu Emg upper extremity due by 06/23 at 3:00pm LEY Mcgregor [facility] 2024-05-04 09:14:08 I left voicemail with patient advising of Alison's request for medical records and they would need to obtain from medical record department, call back number provided for additional questions or concerns. T [facility] 2024-05-03 10:28:56 Genaro Guerrero is a 54 year old female Alison lead case manager is calling requesting if is possible to obtain a copy of the office notes and [facility]73 forms. Mare Fay V [facility] 2024-04-10 17:19:14 Lyrica Rx re-sent T [facility] 2024-04-10 15:33:42 I spoke with [facility] who states they did not receive pregabalin prescription, will have provider resend. Fabiana Bocanegra RN [facility] 2024-04-10 11:12:18 Genaro Guerrero is a 54 year old female Patient stating she was to get a script for her Lyrica stated Tylenol is not helping. Hasn't taken since yesterday morning 04/09. And is in pain Please send to [facility] [address] [place] [address] T [facility] 2024-04-08 08:58:07 Problem: Falls, Risk of Goal: Absence of falls Outcome: Progressing as expected Problem: Pain Goal: Control of pain at or below patient's documented comfort goal Outcome: Progressing as expected Goal: Reduction in pain sensation Outcome: Progressing as expected Problem: Discharge Planning Goal: Adequate for discharge Outcome: Progressing as expected Goal: Effective communication Outcome: Progressing as expected Problem: Mobility - Impaired Goal: Able to achieve maximum mobility level Outcome: Progressing as expected La Shaw RN [facility] 2024-04-08 03:40:29 Problem: Falls, Risk of Goal: Absence of falls Outcome: Progressing as expected Problem: Pain Goal: Control of pain at or below patient's documented comfort goal Outcome: Progressing as expected Goal: Reduction in pain sensation Outcome: Progressing as expected Problem: Discharge Planning Goal: Adequate for discharge Outcome: Progressing as expected Goal: Effective communication Outcome: Progressing as expected Problem: Mobility - Impaired Goal: Able to achieve maximum mobility level Outcome: Progressing as expected Hanane Gibbs RN [facility] 2024-04-07 19:09:07 Report given to THERESA Koo. Rns discussed plan of care and further recommendations. Transport orders placed. Cherri Coppola RN [facility] 2024-04-07 19:01:49 Nurse Report Report given to THERESA Arcos. Chief complaint, assessment findings, infusion verify and orders reviewed. Plan of care discussed at bedside with patient and both nurses. Patient/family members verbalized understanding. Raquel Barry RN Raquel Barry RN [facility] 2024-04-07 17:56:44 Neurosurg and trauma at bedside [facility] 2024-04-07 17:49:23 Trauma states they will place dc orders shortly Arie White RN [facility] 2024-04-07 17:26:18 Neurosurg reports they are speaking to trauma at this time about findings on MRI. T [facility] 2024-04-07 17:07:09 Neurosurgery paged via personal number and reports they will review MRI to give trauma their recs T [facility] 2024-04-07 17:01:30 Spoke with trauma surgery who states they are pending recs from NSGY [facility] 2024-04-07 15:51:14 Spoke with Rad dairy and food laboratory assistant who states the MRI is being read at this time. [facility] 2024-04-07 14:49:46 Pt returned from MRI at this time T [facility] 2024-04-07 14:00:32 Pt remains in MRI at this time. T [facility] 2024-04-07 13:00:00 Pt remains in MRI at this time. [facility] 2024-04-07 12:06:39 Pt transported to [facility] at this time in stretcher, c-collar remains in place [facility] 2024-04-07 11:51:51 Pt removed from tele monitor at this time, MRI reports they are en route to pickle sorter pt. Pt urine collected at this time via purwick in suction canister. Sent off to lab. Pt verbalized understanding of dispo after MRI [facility] 2024-04-07 11:13:34 Trauma returned page, reports they will not give dispo orders under MRI is resulted. [facility] 2024-04-07 11:08:50 Trauma paged for dispo [facility] 2024-04-07 10:40:11 Spoke with MRI who states they will be getting patinet soon. Pt to be updated with pain meds. [facility] 2024-04-07 10:12:45 Trauma paged at this time in regard to patient wanting pain meds and to to drink. Dr. Wood states he will order analgeis and that patient can have Ice chips. MRI to be called at this time to determine will have imaging done. Patient resting in bed at this time. Respirations even and unlabored. NAD noted, VSS. Pending MRI at this time. States understanding of plan of care. Bed in lowest locked position, call light within reach, side rails up x2. [facility] 2024-04-07 07:48:56 Trauma/Surgery resident called back, they are currently in morning rounds and then will come by to see patient and put in orders. [facility] Nelly Carey RN [facility] 2024-04-07 07:43:13 Patient states that she is unable to feel herself touching her L arm, arm warm to the touch and capillary refill < 2 seconds. Paged trauma as patient is requesting pain medication- also to see if patient can be cleared from C-spine. [facility] 2024-04-07 07:17:03 Report received from Rosalind and THERESA Arce. POC discussed. Pt resting on bed, C- Collar still in place, on hospital monitor, VSS, AAOx4. [facility] 2024-04-07 07:05:00 Report to Nelly CARDENAS. Pt remains in hard CC. [facility] Rosalind Valentine RN [facility] 2024-04-07 06:07:00 Report received from EMS. Trauma protocol initiated. Trauma team members at bedside, primary and secondary survey in progress. Pt placed on continuous cardiac monitoring, pulse oximetry, and serial vital signs. Genaro Guerrero is a 54 year old female arrives to ED in [facility] via EMS as transfer from [facility] ER for L sided forearm and hand numbness and weakness s/p 6 boxes falling on head while at work. Pt arrives awake, alert, sitting up in stretcher ROSALIND VALENTINE RN [facility] 2024-04-07 04:58:15 Ambulance is here. Patient ambulated to stretcher with standby assistance. Vital signs stable, no acute distress. Pt left unit with EMS for transfer to [facility]. Farzana North RN [facility] 2024-04-07 04:40:00 Patient transferred [facility] ED to for diagnosis of Neuropraxia, Contusion of left shoulder, contusion of left upper extremity Patient agrees to transfer/admit plan and verbalized understanding of plan of care, family aware of plan Patient awake alert, oriented, resp reg unlabored, skin w/d PIV patent, no s/s infiltration noted, No adverse reaction to medications given while in ED. Report given to [facility] EMS personnel Janna Santana RN [facility] 2024-04-07 03:40:50 Called [facility] for an updated ETA. Dispatch said the crew is held up at another hospital and will be an 45 min to 1 hour. Chris Starkey RN [facility] 2024-04-07 02:15:39 Nurse Report Report given to Ilana CARDENAS at [facility] ED. Chief complaint, assessment findings, and orders reviewed. Plan of care discussed. Adelaida Mccrary RN [facility] 2024-04-07 02:06:28 [facility] ETA 60 to 90 min Vivienne Smith PCT [facility] 2024-04-07 00:32:59 Pt smiling, joking with staff. States feels thankful for care received, despite pain to LUE and neck. NAD noted. Pt ambulatory w/ good, steady gait. Moved pt to 1 to await dispo. Radiology results pending. States pain improved since admin of pain medicine. [facility] 2024-04-06 23:25:06 ERP in room to assess pt. 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 6 boxes fell on top of pt. Struck left side of neck and left shoulder. This occurred at 1945. LUE numbness. Unable to differentiate sharp vs dull with pen pokes to LUE. Passive ROM to LUE only. Movement causes pain. Left posterior neck painful on palpation. No abrasions, bruising or HTA noted. No open wounds noted. Pt states used ice packs w/ no relief from pain. Did not take any medication [employer]. T Adelaida Mccrary RN [facility] 2024-04-06 23:04:00 [facility] Emergency Department Note Patient Name: Genaro Guerrero Date of : 1970 54 year old female Treatment Room: [facility] [id number] Primary Care Physician: PATIENT DOES NOT HAVE A PCP Patient Escorted by: Self [9] Mode of Arrival: Personal means [1] EMS Treatment Prior to ED Arrival: [employer] treatment: Other (comment) [employer] treatment comments: ice pack applied x 7 minutes Travel and Exposure Screening: Symptoms Does patient have any of these symptoms?: (not recorded) Exposure Screening Has patient had contact with someone with a communicable disease in the last month?: (not recorded) Diseases exposed to:: (not recorded) Is Patient ?: (not recorded) Exposure Date: (not recorded) Chief Complaint: Chief Complaint Patient presents with Arm Pain Neck Pain History of Present Illness: Genaro Guerrero is a 54 year old female who presents to the ED for evaluartion of injury to left side of neck, left shoulder that occurred at work when 6 boxes fell unto left shoulder from about 6 ft height. Pt reports severe excruciating pain to left shoulder and numbness to left arm/left hand. 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: No Upper Extremity Issue Location: Clavicle, shoulder, elbow, arm, wrist and hand Clavicle location: L clavicle Shoulder location: L shoulder Arm location: L arm, L forearm and L upper arm Elbow location: L elbow Wrist location: L wrist Hand location: L hand Injury: yes Time since incident: 4 hours Mechanism of injury: crush Crush injury: Mechanism: Falling object Approximate weight of object: Six boxes, weighing about 10 to 20 lbs each Pain details: Quality: Shooting, throbbing and sharp Radiates to: L shoulder Severity: Severe Onset quality: Sudden Duration: 4 hours Timing: Constant Progression: Unchanged Handedness: Right-handed Dislocation: no Foreign body present: No foreign bodies Prior injury to area: No Relieved by: None tried Worsened by: Bearing weight, exercise, movement, stress and stretching area Ineffective treatments: None tried Associated symptoms: decreased range of motion, muscle weakness, neck pain and numbness Associated symptoms: no back pain, no fatigue, no fever, no swelling and no tingling Risk factors: no concern for non-accidental trauma, no known bone disorder, no frequent fractures and no recent illness Past Medical History/Immunizations: Past Medical History: Diagnosis Date Anxiety and depression PTSD (post-traumatic stress disorder) Tetanus received in last 5 years: Yes Allergies: Allergies Allergen Reactions Aspirin Anaphylaxis Codeine Rash Hydrocodone Nausea and/or Vomiting Prednisone Swelling Vicodin [Hydrocodone-Acetaminophen] Hallucinations Past Social History: Substance & Sexual Activity No substance use or sexual activity history on file. Past Surgical History: C/S X 3 Cholecystectomy Tonsillectomy BTL Review of Systems: Review of Systems Constitutional: Negative. Negative for fatigue and fever. HENT: Negative. Eyes: Negative. Respiratory: Negative. Breasts: Negative. Cardiovascular: Negative. Gastrointestinal: Negative. Genitourinary: Negative. Musculoskeletal: Positive for arthralgias, neck pain and neck stiffness. Negative for back pain. Skin: Negative. Neurological: Positive for weakness and numbness. Negative for dizziness, facial asymmetry, light-headedness and headaches. Psychiatric/Behavioral: Negative. All other systems reviewed and are negative. Endocrine: Endocrine negative Physical Exam: ED Triage Vitals [04/06/24 2316] Weight 90.7 kg (200 lb) Actual or estimated Estimated by patient/family report Height 1.6 m (5' 3") BP (!) 149/90 Pulse 92 Resp 16 Temp 37.1 ?C (98.7 ?F) Temp source Oral SpO2 97 % Measured on Room air Physical Exam Vitals and nursing note reviewed. Constitutional: General: She is not in acute distress. Appearance: Normal appearance. She is well-developed and normal weight. She is not ill-appearing or toxic-appearing. HENT: Head: Normocephalic and atraumatic. Nose: Nose normal. No congestion or rhinorrhea. Mouth/Throat: Mouth: Mucous membranes are moist. Pharynx: Oropharynx is clear. No oropharyngeal exudate or posterior oropharyngeal erythema. Eyes: General: No visual field deficit or scleral icterus. Right eye: No discharge. Left eye: No discharge. Extraocular Movements: Extraocular movements intact. Conjunctiva/sclera: Conjunctivae normal. Pupils: Pupils are equal, round, and reactive to light. Neck: Thyroid: No thyromegaly. Cardiovascular: Rate and Rhythm: Normal rate and regular rhythm. Heart sounds: Normal heart sounds. No murmur heard. Pulmonary: Effort: Pulmonary effort is normal. No respiratory distress. Breath sounds: Normal breath sounds. No stridor. No wheezing, rhonchi or rales. Chest: Chest wall: No tenderness. Abdominal: General: Bowel sounds are normal. There is no distension. Palpations: Abdomen is soft. There is no mass. Tenderness: There is no abdominal tenderness. There is no right CVA tenderness, left CVA tenderness, guarding or rebound. Hernia: No hernia is present. Musculoskeletal: General: No swelling, tenderness, deformity or signs of injury. Normal range of motion. Cervical back: Normal range of motion and neck supple. No rigidity or tenderness. Right lower leg: No edema. Lymphadenopathy: Cervical: No cervical adenopathy. Skin: General: Skin is warm and dry. Capillary Refill: Capillary refill takes less than 2 seconds. Coloration: Skin is not jaundiced or pale. Findings: No bruising, erythema, lesion or rash. Neurological: Mental Status: She is alert and oriented to person, place, and time. GCS: GCS eye subscore is 4. GCS verbal subscore is 5. GCS motor subscore is 6. Cranial Nerves: Cranial nerve deficit present. No dysarthria or facial asymmetry. Sensory: No sensory deficit. Motor: Weakness present. No tremor, atrophy, abnormal muscle tone, seizure activity or pronator drift. Coordination: Coordination normal. Gait: Gait normal. Deep Tendon Reflexes: Reflexes normal. Psychiatric: Behavior: Behavior normal. Thought Content: Thought content normal. Judgment: Judgment normal. Radiology: CT CERVICAL SPINE WO CONTRAST Preliminary Result EXAM: CT CERVICAL SPINE WO CONTRAST HISTORY: 54 years-old Female; Provided indication: Polytrauma, blunt . TECHNIQUE: Routine unenhanced CT of the cervical spine was performed. Coronal and sagittal reformats were obtained. COMPARISON: None available. FINDINGS: No acute fracture or traumatic dislocation is visualized. The craniocervical junction is intact. Straightening of cervical lordosis is seen. The vertebral bodies are normal in height and in normal alignment. Mild degenerative changes are visualized manifested by disc arthrosis and marginal osteophytes, centered around C5-C6. The visualized lung apices are clear. The prevertebral soft tissues appear unremarkable. IMPRESSION No acute osseous abnormality. Preliminary Report Dictated by Resident: Kacy Anderson XR SHOULDER 2+ VW LEFT Preliminary Result EXAM: XR FOREARM 2 VW LEFT, XR HUMERUS 2 VW LEFT, XR SHOULDER 2+ VW LEFT HISTORY: LEFT FOREARM INJURY COMPARISON: None. FINDINGS: Radiographs of the left shoulder, left humerus and left forearm demonstrate no acute fracture or dislocation. The joint spaces are maintained. No soft tissue abnormality is seen. IMPRESSION No acute osseous abnormality.. Preliminary Report Dictated by Resident: Kacy Anderson XR HUMERUS 2 VW LEFT Preliminary Result EXAM: XR FOREARM 2 VW LEFT, XR HUMERUS 2 VW LEFT, XR SHOULDER 2+ VW LEFT HISTORY: LEFT FOREARM INJURY COMPARISON: None. FINDINGS: Radiographs of the left shoulder, left humerus and left forearm demonstrate no acute fracture or dislocation. The joint spaces are maintained. No soft tissue abnormality is seen. IMPRESSION No acute osseous abnormality.. Preliminary Report Dictated by Resident: Kacy Anderson XR FOREARM 2 VW LEFT Preliminary Result EXAM: XR FOREARM 2 VW LEFT, XR HUMERUS 2 VW LEFT, XR SHOULDER 2+ VW LEFT HISTORY: LEFT FOREARM INJURY COMPARISON: None. FINDINGS: Radiographs of the left shoulder, left humerus and left forearm demonstrate no acute fracture or dislocation. The joint spaces are maintained. No soft tissue abnormality is seen. IMPRESSION No acute osseous abnormality.. Preliminary Report Dictated by Resident: Kacy Anderson Lab Results: Lab Results - No data to display Orders and Treatments: Orders Placed This Encounter Procedures CT CERVICAL SPINE WO CONTRAST XR SHOULDER 2+ VW LEFT XR HUMERUS 2 VW LEFT XR FOREARM 2 VW LEFT Orders Placed This Encounter Medications DISCONTD: fentanyl PF (SUBLIMAZE (PF)) injection 50 mcg fentanyl PF (SUBLIMAZE (PF)) injection 50 mcg dexamethasone sod phos PF injection 10 mg First Provider Eval: ED Events None ED COURSE ED Course as of 04/07/24 020WedApr 07, 2024 015 Discussed presentation, imaging study results with Dr Mathur, Trauma Faculty in [facility], who has accepted pt for ER-ER evaluation [[place]] ED Course User Index [[place]] Jumana rTan MD Diagnosis/Impression as of 04/07/24200 Contusion of neck, initial encounter Contusion of left shoulder, initial encounter Contusion of left upper extremity, initial encounter Neuropraxia of left upper extremity, initial encounter Procedures: Procedures MDM: Medical Decision Making Genaro Guerrero is a 54 year old female who presents to ED for evaluation of LUE injury sustained when about six boxes fell unto the left neck/shoulder Problems Addressed: Contusion of left shoulder, initial encounter: acute illness or injury Contusion of left upper extremity, initial encounter: acute illness or injury Contusion of neck, initial encounter: acute illness or injury Neuropraxia of left upper extremity, initial encounter: acute illness or injury Details: Pt is reporting loss of sensation and motors to the LUE although she has severe left shoulder pain. Amount and/or Complexity of Data Reviewed Radiology: ordered. Decision-making details documented in ED Course. Risk Prescription drug management. Parenteral controlled substances. Decision regarding hospitalization. Flowsheet Documentation: Scoring Tools: No data recorded Disposition/Condition: ED Disposition ED Disposition [facility] Condition -- Comment -- Discharge Medications: Patient's Medications START taking these medications No medications on file CONTINUE taking these medications which have NOT CHANGED IBUPROFEN 600 MG TABLET Take 1 tablet by mouth every 6 (six) hours as needed for Pain (scale 4-6). ONDANSETRON (ZOFRAN ODT) 4 MG DISINTEGRATING TABLET Take 1 tablet by mouth every 8 (eight) hours as needed for Nausea and Vomiting (N/V). START taking Modified Medications as Prescribed No medications on file STOP taking these medications No medications on file Follow-up: Electronically signed by: Jumana Tran MD 04/07/24199 Jumana Tran MD 04/07/24200 T [facility]
[2024-11-10 02:17] LABS: Absolute Basophils 0.1 K/uL (0-0.5); Absolute Eosinophils 0.3 K/uL (0-0.5); Absolute Lymphocytes (CBC) 2.4 K/uL (0.7-4.9); Absolute Monocytes 0.8 K/uL (0.1-1.3); Absolute Neutrophil 5.3 K/uL (1.8-8.0); Basophils % 0.9 % (0-1.3); Eosinophils % 3.3 % (0-4.4); Hematocrit 37.1 % (36.0-45.0); Hemoglobin 12.6 g/dL (12.0-15.0); MCH 29.2 pg (27.0-35.0); MCV 86.1 fL (80-100); MPV 9.8 fL (7.6-11.3); Monocytes % 8.6 % (3.3-12.3); Neutrophils % 60.2 % (41.7-73.7); Nucleated Red Blood Cells % 0.1 % (0-0); Platelets 250 thou/uL (152-406); RBC Red Blood Cell Count 4.31 M/uL (3.86-4.86); Red Cell Distribution Width 14.3 % (12.1-15.2)
[2024-11-10 02:27] LABS: Anion Gap 7.5 mEq/L (5.0-15.0); Potassium 3.5 mEq/L (3.5-5.1); Troponin High Sensitivity 3.5 pg/mL (<58.9)
--- NOTE | 2024-11-10 03:48 | EDPHYS ---
Physician Documentation [facility] Name: Nancy Guerrero Age: 54 yrs Sex: Female : 1970 Arrival Date: 11/10/2024 Time: 01:23 Bed 5 Private MD: ED Physician Taurus Lund HPI: 11/10 02:36 This 54 yrs old Female presents to ER via Wheelchair with complaints of Ankle pain, rn Ankle Swelling. 02:36 The patient presents with pain. The complaints affect the left ankle. Onset: The rn symptoms/episode began/occurred 1 month(s) ago. Modifying factors: The symptoms are alleviated by elevation of extremity, sitting, the symptoms are aggravated by weight bearing, Standing and working. Severity of symptoms: At their worst the symptoms were moderate, in the emergency department the symptoms are unchanged. The patient has experienced similar episodes in the past. Patient reports at least 1 month of left ankle and foot pain. Reports intermittent swelling that is worse after a day of work. Improves with elevation and rest. No trauma or traumatic event. No discoloration. No rash or lesions. No fever or chills. Patient reports pain in the foot and ankle that shoots upward and sharp electrical fashion. Patient also states has been having 2 weeks of intermittent chest pain. Patient reports these episodes of chest pain are quick, short-lived, and usually in the setting of emotional distress or stress. Denies any chest pain that is worsened with exertion or associated with diaphoresis or dyspnea.. 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 - Infectious Disease History:: Denies. - Social history:: Smoking status: Patient reports the use of cigarette tobacco products, smokes one-half pack cigarettes per day, Patient/guardian denies using alcohol, street drugs. - Family history:: not pertinent. - Hospitalizations: : No recent hospitalization is reported. ROS: 02:36 Constitutional: Negative for fever, chills, and weight loss, Cardiovascular: Negative rn for palpitations, and edema, Respiratory: Negative for shortness of breath, cough, wheezing, and pleuritic chest pain, Abdomen/GI: Negative for abdominal pain, nausea, vomiting, diarrhea, and constipation, Back: Negative for injury and pain, : Negative for injury, bleeding, discharge, and swelling, MS/Extremity: Negative for injury and deformity, Neuro: Negative for headache, weakness, numbness, tingling, and seizure, Exam: 02:36 Constitutional: This is a well developed, well nourished patient who is awake, alert, rn and in no acute distress. Cardiovascular: Regular rate and rhythm. No pulse deficits. Respiratory: No increased work of breathing, no retractions or nasal flaring. Skin: Warm, dry with normal turgor. Normal color with no rashes, no lesions, and no evidence of cellulitis. MS/ Extremity: Pulses equal, no cyanosis. Neurovascular intact. No ecchymosis or swelling noted. No discoloration. Strong dorsalis pedis pulse. No evidence of acute injury Vital Signs: 01:39 BP 139 / 94; Pulse 87; Resp 16 S; Temp 97.9(O); Pulse Ox 100% on R/A; Weight 104.33 kg lg3 (R); Height 5 ft. 3 in. (R); Pain 10/10; 02:00 BP 141 / 69; Pulse 80; Resp 18; Pulse Ox 100% on R/A; al5 02:30 BP 126 / 77; Pulse 81; Resp 18; Temp 97.9; Pulse Ox 100% ; Pain 9/10; al5 03:41 BP 135 / 85; Pulse 79; Resp 18; Temp 97.9; Pulse Ox 100% ; Pain 9/10; bm8 01:39 Body Mass Index 40.74 (104.33 kg, 160.02 cm) lg3 01:39 Pain Scale: Adult lg3 02:30 Pain Scale: Adult al5 03:41 Pain Scale: Adult bm8 [place] Coma Score: 02:31 Eye Response: spontaneous(4). Motor Response: obeys commands(6). Verbal Response: bm8 oriented(5). Total: 15. 03:41 Eye Response: spontaneous(4). Motor Response: obeys commands(6). Verbal Response: bm8 oriented(5). Total: 15. MDM: 01:29 Medical Screening Exam initiated rn 03:45 Differential diagnosis: fracture, sprain, arthritis, gout. Data reviewed: vital signs, rn nurses notes, radiologic studies, plain films, and as a result, I will discharge patient. Counseling: I had a detailed discussion with the patient and/or guardian regarding the historical points, exam findings, and any diagnostic results supporting the discharge/admit diagnosis, lab results, radiology results, the need for outpatient follow up, to return to the emergency department if symptoms worsen or persist or if there are any questions or concerns that arise at home. Special discussion: I discussed with the patient/guardian in detail that at this point there is no indication for admission to the hospital. It is understood, however, that if the symptoms persist or worsen the patient needs to return immediately for re-evaluation. Based on the history and exam findings, there is no indication for further emergent testing or inpatient evaluation. I discussed with the patient/guardian the need to see the orthopedic surgeon for further evaluation of the symptoms. ED course: X-ray left ankle images show avulsion fracture of the medial malleolus per my interpretation. No other acute findings and workup. No ischemia on ECG. Troponin negative. Will discharge home in a boot and will follow-up with orthopedist as needed.. 11/10 01:45 Order name: Basic Metabolic Panel; Complete Time: rn 11/10 01:45 Order name: CBC with Diff; Complete Time: 11/10 01:45 Order name: Troponin HS; Complete Time: 11/10 01:45 Order name: XRAY Foot LEFT 3 View 11/10 01:45 Order name: XRAY Ankle LEFT 3 view 11/10 01:45 Order name: XRAY Chest (1 view) 11/10 01:45 Order name: EKG; Complete Time: :46 rn 11/10 01:45 Order name: Cardiac monitoring; Complete Time: rn 11/10 01:45 Order name: EKG - Nurse/Tech; Complete Time: :50 rn 11/10 01:45 Order name: IV Saline Lock; Complete Time: : rn 11/10 01:45 Order name: Labs collected and sent; Complete Time: 01:50 rn 11/10 01:45 Order name: O2 Per Protocol; Complete Time: 01:50 rn 11/10 01:45 Order name: O2 Sat Monitoring; Complete Time: 01:50 rn 11/10 03:48 Order name: Walking boot; Complete Time: 04:04 rn Administered Medications: No medications were administered Disposition Summary: 11/10/24 03:47 Discharge Ordered Notes: Location: Home rn Problem: an ongoing problem rn Symptoms: have improved rn Condition: Stable rn Diagnosis - Avulsion fracture of medial malleolus of left ankle rn Followup: rn - With: Shahbaz Lyn MD - When: As needed - Reason: Recheck today's complaints, Re-evaluation by your physician Discharge Instructions: - Discharge Summary Sheet rn - Ankle Fracture rn - Nonspecific Chest Pain, Adult rn - Walking Boot, Adult rn Forms: - Medication Reconciliation Form rn - Antibiotic email marketing intern - Prescription Opioid Use rn - Patient Portal Instructions rn - Leadership Thank You Letter rn Signatures: Dispatcher [employer] EDTaurus Sanchez MD MD rn Able, THERESA Plummer RN lg3 Corrections: (The following items were deleted from the chart) 02:40 02:36 Constitutional: This is a well developed, well nourished patient who is awake, rn alert, and in no acute distress. Cardiovascular: Regular rate and rhythm. No pulse deficits. Skin: Warm, dry with normal turgor. Normal color with no rashes, no lesions, and no evidence of cellulitis. MS/ Extremity: Pulses equal, no cyanosis. Neurovascular intact. No ecchymosis or swelling noted. No discoloration. Strong dorsalis pedis pulse. No evidence of acute injury rn
--- NOTE | 2024-11-10 03:48 | ER ---
Nurse's Notes [facility] Name: Nancy Guerrero Age: 54 yrs Sex: Female : 1970 Arrival Date: 11/10/2024 Time: 01:23 Bed 5 Private MD: Diagnosis: Avulsion fracture of medial malleolus of left ankle Presentation: 11/10 01:39 Chief complaint: Patient states: left ankle and foot pain/swelling X1 month. denies lg3 injury. 2 episodes of CP yesterday lasting 15-30 min accompanied by SOB and nausea. Coronavirus screen: Client denies travel out of the [place] in the last 14 days. At this time, the client does not indicate any symptoms associated with coronavirus-19. Ebola Screen: No symptoms or risks identified at this time. Initial Sepsis Screen: Does the patient meet any 2 criteria? No. Patient's initial sepsis screen is negative. Does the patient have a suspected source of infection? No. Patient's initial sepsis screen is negative. Risk Assessment: Do you want to hurt yourself or someone else? Patient reports no desire to harm self or others. Onset of symptoms is unknown. 01:39 Method Of Arrival: Wheelchair lg3 01:39 Acuity: KWASI 3 lg3 Triage Assessment: 01:41 General: Appears in no apparent distress. comfortable, Behavior is calm, cooperative. lg3 Pain: Complains of pain in left foot and anterior aspect of left ankle Pain currently is 10 out of 10 on a pain scale. EENT: No deficits noted. No signs and/or symptoms were reported regarding the EENT system. Neuro: No deficits noted. Isabel Agitation-Sedation Scale (RASS): 0 - Alert and Calm Level of Consciousness is awake, alert, obeys commands, Oriented to person, place, time, situation. Cardiovascular: No deficits noted. Reports chest pain, nausea, shortness of breath, since all CP and associated symptoms resolved COMPUTER AIDE Heart tones S1 S2 present. Respiratory: No deficits noted. Airway is patent Respiratory effort is even, unlabored, Respiratory pattern is regular, symmetrical. GI: No deficits noted. No signs and/or symptoms were reported involving the gastrointestinal system. : No signs and/or symptoms were reported regarding the genitourinary system. Derm: Skin is intact, is healthy with good turgor, Skin is dry, Skin is normal, Skin temperature is warm. Musculoskeletal: Circulation, motion, and sensation intact. Range of motion: intact in all extremities, Swelling present in left ankle. 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 - Infectious Disease History:: Denies. - Social history:: Smoking status: Patient reports the use of cigarette tobacco products, smokes one-half pack cigarettes per day, Patient/guardian denies using alcohol, street drugs. - Family history:: not pertinent. - Hospitalizations: : No recent hospitalization is reported. Screenin:54 [facility] ED Fall Risk Assessment (Adult) History of falling in the last 3 months, al5 including since admission No falls in past 3 months (0 pts) Confusion or Disorientation No (0 pts) Intoxicated or Sedated No (0 pts) Impaired Gait No (0 pts) Mobility Assist Device Used No (0 pt) Altered Elimination No (0 pt) Score/Fall Risk Level 0 - 2 = Low Risk Oriented to surroundings, Maintained a safe environment, Hourly rounding (assess needs \T\ fall precautionary measures) done. Abuse screen: Denies threats or abuse. Denies injuries from another. Nutritional screening: No deficits noted. Tuberculosis screening: No symptoms or risk factors identified. Assessment: 01:52 General: Appears in no apparent distress. uncomfortable, Behavior is calm, cooperative. al5 Pain: Complains of pain in left foot, left lateral ankle and medial aspect of left foot Pain currently is 10 out of 10 on a pain scale. Neuro: Level of Consciousness is awake, alert, obeys commands, Oriented to person, place, time, situation. Cardiovascular: Capillary refill < 3 seconds Patient's skin is warm and dry. Respiratory: Airway is patent Respiratory effort is even, unlabored, Respiratory pattern is regular, symmetrical. GI: No signs and/or symptoms were reported involving the gastrointestinal system. : No signs and/or symptoms were reported regarding the genitourinary system. EENT: No signs and/or symptoms were reported regarding the EENT system. Derm: Skin is intact, is healthy with good turgor, Skin is pink, warm \T\ dry. normal, swelling to L ankle. Musculoskeletal: Swelling present in left lateral ankle and medial aspect of left foot Reports pain in left foot and anterior aspect of left ankle. 02:31 Reassessment: Patient appears in no apparent distress at this time. No changes from bm8 previously documented assessment. Patient and/or family updated on plan of care and expected duration. Pain level reassessed. Patient is alert, oriented x 3, equal unlabored respirations, skin warm/dry/pink. 03:41 Reassessment: Patient appears in no apparent distress at this time. Patient and/or bm8 family updated on plan of care and expected duration. Pain level reassessed. Patient is alert, oriented x 3, equal unlabored respirations, skin warm/dry/pink. 04:00 Reassessment: patient placed in aircast. al5 Vital Signs: 01:39 BP 139 / 94; Pulse 87; Resp 16 S; Temp 97.9(O); Pulse Ox 100% on R/A; Weight 104.33 kg lg3 (R); Height 5 ft. 3 in. (R); Pain 10/10; 02:00 BP 141 / 69; Pulse 80; Resp 18; Pulse Ox 100% on R/A; al5 02:30 BP 126 / 77; Pulse 81; Resp 18; Temp 97.9; Pulse Ox 100% ; Pain 9/10; al5 03:41 BP 135 / 85; Pulse 79; Resp 18; Temp 97.9; Pulse Ox 100% ; Pain 9/10; bm8 01:39 Body Mass Index 40.74 (104.33 kg, 160.02 cm) lg3 01:39 Pain Scale: Adult lg3 02:30 Pain Scale: Adult al5 03:41 Pain Scale: Adult bm8 [place] Coma Score: 02:31 Eye Response: spontaneous(4). Motor Response: obeys commands(6). Verbal Response: bm8 oriented(5). Total: 15. 03:41 Eye Response: spontaneous(4). Motor Response: obeys commands(6). Verbal Response: bm8 oriented(5). Total: 15. ED Course: 01:29 Patient arrived in ED. jj6 01:29 Taurus Lund MD is Attending Physician. rn 01:41 Triage completed. lg3 01:41 Arm band placed on right wrist. lg3 01:50 Michael Hughes, RN is Primary Nurse. bm8 01:53 No provider procedures requiring assistance completed. Inserted saline lock: 20 gauge al5 in right antecubital area, using aseptic technique. Blood collected. Flushed with 10 mL NS. 01:54 Patient has correct armband on for positive identification. Bed in low position. Call al5 light in reach. Side rails up X2. Provided Education on: plan of care. 02:17 XRAY Foot LEFT 3 View In Process Unspecified. EDMS 02:17 XRAY Ankle LEFT 3 view In Process Unspecified. EDMS 02:17 XRAY Chest (1 view) In Process Unspecified. EDMS 02:31 Client placed on continuous cardiac and pulse oximetry monitoring. NIBP monitoring bm8 applied. monitoring tech on. Pulse ox on. NIBP on. Door closed. Noise minimized. Warm blanket given. Pillow given. Verbal reassurance given. Head of bed elevated. 02:31 Initial lab(s) drawn, by me, sent to lab. EKG done, by ED staff, reviewed by Taurus Lund MD. Patient maintains SpO2 saturation greater than 95% on room air. 03:46 Shahbaz Lyn MD is Referral Physician. rn 04:04 IV discontinued, intact, bleeding controlled, No redness/swelling at site. Pressure al5 dressing applied. Administered Medications: No medications were administered Medication: 01:53 VIS not applicable for this client. al5 Outcome: 03:47 Discharge ordered by . rn 04:04 Discharged to home ambulatory, with family, al5 04:04 Condition: good 04:04 Discharge instructions given to patient, Instructed on discharge instructions, follow up and referral plans. Demonstrated understanding of instructions, follow-up care, 04:05 Patient left the ED. al5 Signatures: Dispatcher [employer] EDTaurus Sanchez MD MD rn Able, Lacie, RN RN lg3 Susu Melvinfer jj6 Michael Hughes, RN RN bm8 Manisha Warren RN RN al5 Corrections: (The following items were deleted from the chart) 02:46 02:31 BP 126 / 77; Pulse 81bpm; Resp 18bpm; Pulse Ox 100%; Temp 97.9F; Pain 9/10, al5 Adult; bm8
[2024-11-10 04:14] VITALS: TEMP 97.9; O2SAT 100
[2024-11-10 04:21] VITALS: BP 135/85
--- NOTE | 2024-11-10 05:47 | RAD REPORT ---
PROCEDURE: XR Chest, 1 View CLINICAL INDICATION: The patient is 54 years old and is Female; CHEST PAIN Bed Name: 5 TECHNIQUE: Frontal view of the chest. COMPARISON: No relevant prior studies available. FINDINGS: LUNGS: No discrete focal consolidation. PLEURAL SPACE: No appreciable pleural effusion or pneumothorax. MEDIASTINUM: Unremarkable cardiomediastinal contour. BONES/JOINTS: No acute osseous abnormality. IMPRESSION: No acute cardiopulmonary abnormality. Electronically signed by: Dandre Bird MD 11/10/2024 05:00 AM CDT RP Due to temporary technical issues with the PACS/K[employer] reporting system, reports are being crystal d by the in-house radiologist without review as a courtesy to ensure prompt reporting the interpreting radiologist is fully responsible for the content of the report. Transcribed Date/Time: 11/10/2024 5:47 AM
--- NOTE | 2024-11-10 05:48 | RAD REPORT ---
PROCEDURE: XR Left Ankle Complete, 3 Views CLINICAL INDICATION: The patient is 54 years old and is Female; PAIN Bed Name: 5 TECHNIQUE: Frontal, lateral and oblique views of the left ankle. COMPARISON: No relevant prior studies available. FINDINGS: BONES/JOINTS: Avulsion fracture of the tip of the left medial malleolus. Mild left ankle soft tissu e swelling. Moderate plantar calcaneal spur. No additional fractures. No subluxation or dislocation. SOFT TISSUES: See above. IMPRESSION: Avulsion fracture of the tip of the left medial malleolus. Mild left ankle soft tissue swelling. Electronically signed by: Dandre Bird MD 11/10/2024 03:27 AM CDT RP Due to temporary technical issues with the PACS/[employer] reporting system, reports are being crystal d by the in-house radiologist without review as a courtesy to ensure prompt reporting the interpreting radiologist is fully responsible for the content of the report. Transcribed Date/Time: 11/10/2024 5:47 AM
--- NOTE | 2024-11-10 05:48 | RAD REPORT ---
EXAM: XR Left Foot Complete, 3 or More Views CLINICAL HISTORY: PAIN TECHNIQUE: Frontal, lateral and oblique views of the left foot. COMPARISON: No relevant prior studies available. FINDINGS: Bones/joints: Mild hallux valgus. No acute fracture. Prominent inferior calcaneal enthesophyte. N o dislocation. Soft tissues: Unremarkable. No radiopaque foreign body. IMPRESSION: No acute injury. Electronically signed by: Edita Eddy MD 11/10/2024 03:04 AM CDT RP Due to temporary technical issues with the PACS/[employer] reporting system, reports are being crystal d by the in-house radiologist without review as a courtesy to ensure prompt reporting the interpreting radiologist is fully responsible for the content of the report. Transcribed Date/Time: 11/10/2024 5:48 AM
--- NOTE | 2024-11-13 12:19 | EKG ---
Test Date: 2024-11-10 Test Time: 01:48:56 Receiving Tank Operator: JALEEL MEASUREMENT RESULTS: Intervals: Rate: 82 UT: 158 QRSD: 80 QT: 374 QTc: 436 Ideal: P: 67 UT: 158 QRS: 49 T: 47 INTERPRETIVE STATEMENTS: Normal sinus rhythm Cannot rule out Anterior infarct, age undetermined Abnormal ECG No previous ECG available for comparison Electronically Signed On 11-13-24 12:10:40 CDT by Rich Nicholas
== END 2024-11-10 04:05 | disposition home or self-care (01) ==
LOC: ER 01:23
DX: S82.52XA Displaced fracture of medial malleolus of left tibia, initial encounter for closed fracture (principal); F17.210 Nicotine dependence, cigarettes, uncomplicated
CPT/HCPCS: 36415; 71045; 80048; 84484; 85025; 93005; 99284